=== PATIENT | female | born 1995 | race American Indian/Alaskan Native ===

== ENCOUNTER 2021-05-18 22:02 | Emergency (ER) | payer OTHER ==
[~2021-05-18] VITALS: Ht 167.6 cm; Wt 63.5 kg
[~2021-05-18 22:02] MED LIST: DOXYCYCLINE HY100 MG PO; NORCO 5-325 TA1 EACH PO
[2021-05-19] MEDS ORDERED: VISTARIL25 MG PO (00:06)
== END 2021-05-19 00:30 | disposition home or self-care (01) ==
LOC: ED 22:02
DX: F41.9 Anxiety disorder, unspecified (principal)
CPT/HCPCS: 36415; 80053; 83735; 84703; 85025; 99283; A9270

== ENCOUNTER 2021-05-21 16:15 | Emergency (ER) | payer OTHER ==
[~2021-05-21] VITALS: Ht 167.6 cm; Wt 63.5 kg
[~2021-05-21 16:15] MED LIST changes: +VISTARIL25 MG PO
--- OUTSIDE RECORDS SUMMARY | 2021-05-21 16:24 | XMS ---
PreManage Notification: [place] [place] Events No recent Security Events currently on file CRITERIA MET - [facility] - 2 Visits in 30 Days CARE PROVIDERS There are no care providers on record at this time. Leena has no Care Guidelines for this patient. Yu VISIT COUNT (12 MO.) 2 [facility] T[facility] 2 NOTE: Visits indicate total known visits. ED/[facility] VISIT TRACKING (12 MO.) 05/21/2021 16:17 [facility] TYPE: Emergency COMPLAINT: - LT LEG NUMBNESS 05/18/2021 22:03 JITENDRA Hernandez OR TYPE: Emergency COMPLAINT: - SOB, RAPID HEART RATE DIAGNOSES: - Anxiety disorder, unspecified - Shortness of breath INPATIENT VISIT TRACKING (12 MO.) No inpatient visits to display in this time frame [email or web address]
== END 2021-05-21 17:08 | disposition home or self-care (01) ==
LOC: ED 16:15
DX: R20.2 Paresthesia of skin (principal)
CPT/HCPCS: 99283

== ENCOUNTER 2021-07-26 15:52 | Emergency (ER) | payer OTHER ==
[~2021-07-26] VITALS: Ht 167.6 cm; Wt 63.5 kg
== END 2021-07-26 22:51 | disposition home or self-care (01) ==
LOC: ED 15:52
DX: R07.81 Pleurodynia (principal); G89.29 Other chronic pain
CPT/HCPCS: 99283